=== PATIENT | female | born 1990 | race Caucasian/White ===

== ENCOUNTER 2017-08-21 06:26 | Outpatient (RCR) | payer MEDICAID | END 2017-08-26 | disposition home or self-care (01) | LOC: CARD 06:26 | PROVIDERS: ATTEND Nurse Practitioner Family | DX: R53.83 Other fatigue (principal); R00.2 Palpitations | CPT/HCPCS: 93270 ==

== ENCOUNTER 2017-08-29 13:14 | Outpatient (RCR) | payer MEDICAID | END 2017-11-27 | disposition home or self-care (01) | LOC: CARD 13:14 | PROVIDERS: ATTEND Nurse Practitioner Family | DX: R53.83 Other fatigue (principal); R00.2 Palpitations ==

== ENCOUNTER 2018-10-12 15:50 | Emergency (ER) | payer MEDICAID ==
[~2018-10-12] VITALS: Ht 170.2 cm; Wt 68.0 kg
--- OUTSIDE RECORDS SUMMARY | 2018-10-12 15:54 | XMS REPORT ---
Author Author DARYL ALONZO [facility] Address [address] [place] [address] Care Team Providers Care Ict Programmer Name Role Phone DARYL ALONZO Unavailable PROBLEMS Type Condition ICD9-CM Code QYZ38-TV Code Onset Dates Condition Status SNOMED Code Problem Slurred speech R47.81 Active 143302786 Problem Heart palpitations R00.2 Active 87294024 Problem Hypersomnia G47.10 Active 44301466 Problem Fatigue, unspecified type R53.83 Active 26169989 Problem ADD (attention deficit disorder) F98.8 Active 160838325 ALLERGIES No Information ENCOUNTERS Encounter Location Date Diagnosis [address] [id number] March, [address] [id number] March, Acute otitis externa of right ear, unspecified type H60.[address] [id number] Dec, Influenza J11.[address] [id number] Sep, [address] [id number] May, [address] [id number] Apr, Fatigue, unspecified type R53.83 ; Heart palpitations R00.2 and Slurred speech R47.[address] [id number] Jan, [address] [id number] Oct, Acute non-recurrent maxillary sinusitis J01.00 and Sore throat J02.[address] [id number] [address] Oct, Dental examination Z01.20 [facility] [address]00565[address] [address] Sep, Dental examination Z01.20 [facility] [address] [facility] [id number][place] [address] Sep, [facility] [place] [address] [id number] [address] Sep, [facility] [address] [id number], [place] [id number] Sep, ADD (attention deficit disorder) F98.8 [facility] [place] [address] [id number][place] [address] Sep, ADD (attention deficit disorder) F98.[address] [facility] [place] [address] [place] [address] AVE [id number], [place] 837557732 Aug, Fatigue, unspecified type R53.83 ; Family history of systemic lupus erythematosus Z82.69 ; Hypersomnia G47.10 ; Screening cholesterol level Z13.220 and Thyroid disorder screen Z13.[address] [facility] [place] [id number] [place] [address] [id number] Feb, [facility] [place] [id number], [place] [id number] Jan, [facility] [place] [address] [id number], [place] [phone] Aug, [facility] [place] [address] [id number], [place] [phone] Jun, Sore throat 462 [facility] [place] [id number] [place] [address] [id number] March, [facility] [place] [address] [id number] [place] [address] [id number] March, [facility] [place] [address] [id number][place] [id number] March, [facility] [place] [address] [id number], [place] [phone] March, [facility] [place] [address] [id number], [place] [id number] March, Vaginal discharge 623.5 and Dysuria 788.1 [facility] [place] [id number], [place] [phone] March, [facility] [place] [id number] [place] [address] [id number] March, [facility] [place] [id number] [place] [address] [id number] Feb, [facility] [place] [id number] [place] [address] [id number] Feb, [facility] [place] [id number] [place] [address] [id number] Feb, High risk medication use V58.69 and Attention deficit disorder (ADD) 314.00 [facility] [place] [id number] [place] [address] [id number] Feb, [facility] [id number] [place] [address]- [address] Feb, [facility] [id number] [place] [address]- 2546 Feb, [facility] [place] [id number] [place] [address] [id number] Oct, [facility] [id number] [place] [address]- 2546 Oct, [facility] [place] [id number], [place] [phone] Aug, [facility] [place] [facility] [id number] [place] [address]- 2546 Aug, [facility] [place] [facility] [id number] [place] [address] 24[address]- 2546 Nov, [facility] [place] [facility] [id number] [place] [address]- 2546 Nov, [facility] [place] [id number] [place] [address] [id number] Nov, [facility] [place] [facility] [address] [id number] [place] [address] Nov, [facility] [place] [facility] [address] [id number] [address] Oct, [facility] [place] [facility] [address] [facility] [id number] [place] [address] Oct, [facility] [place] [facility] [address] [id number][place] [address] Aug, [facility] [address] [id number], [place] [phone] Aug, [facility] [place] [facility] [address] [id number][place] [address] Aug, [facility] [address] [id number], [place] [phone] Jul, [facility] [id number] [place] [address] [id number] Jul, [facility] [address] [id number][place] [address] 24 Jul, 2013 [facility] [place] [facility] [address] [id number][place] [address] 18 Jul, 2013 [facility] [address] [facility] [id number], [place] [phone] 16 Jul, 2013 [facility] [place] [facility] [address] [facility] [id number][place] [address] 12 Jul, 2013 [facility] [address] [facility] [id number], [place] [id number] 09 Jul, 2013 [facility] [place] [facility] [address] [id number] [address] 07 Jul, 2013 [facility] [place] [facility] [address] [facility] [id number][place] [address]- 6[address] 06 Jul, 2013 [facility] [place] [facility] [address] [facility] [id number][place] [address] 06 Jul, 2012 [facility] [address] [id number] [place] [phone] Jul, [facility] [address] [id number] [place] [phone] Jun, [facility] [address] [facility] [id number][place] [address] Jun, [facility] [address] [facility] [id number][place] [address] Apr, [facility] [address] [id number] [place] [phone] March, [facility] [address] [id number] [place] [phone] Jan, [facility] [address] [id number] [place] [phone] Jan, [facility] [address] [id number] [place] [phone] Jan, [facility] [address] [id number] [place] [id number] Jan, [facility] [address] [id number] [place] [phone] Dec, [facility] [address] [id number] [place] [phone] Nov, [facility] [address]00565100[place], [place] [address] Nov, [facility] [address] [id number] [place] [id number] Nov, [facility] [address] [id number] [place] [phone] Nov, [facility] [address] [id number] [place] 146843464 Aug, [facility] [address] [id number] [place] [id number] Jul, [facility] [address] [id number] [place] [id number] March, [facility] [address] [facility] [id number][place] [address] Feb, [facility] [address] [facility] [id number] [place] [address] Jan, [facility] 120 [facility] [id number] [place] [phone] Nov, [facility] [address] [facility] [id number] [place] [address] Aug, [facility] [address] [facility] [id number][place] [address]- [address] Aug, IMMUNIZATIONS No Known Immunizations SOCIAL HISTORY Never Assessed REASON FOR VISIT Requests return call PLAN OF CARE VITAL SIGNS MEDICATIONS Unknown Medications RESULTS No Results PROCEDURES No Known procedures INSTRUCTIONS MEDICATIONS ADMINISTERED No Known Medications MEDICAL (GENERAL) HISTORY Type Description Date Medical History attention deficit disorder Surgical History wisdom teeth extraction Surgical History dilatation and curettage 10/2013 Surgical History tubal ligation 07/2014
--- OUTSIDE RECORDS SUMMARY | 2018-10-12 15:54 | XMS REPORT ---
Author Author DARYL ALONZO [facility] [address] Address [address] [place] [address]31 Care Team Providers Care Horizontal Drill Operator Name Role Phone DARYL ALONZO Unavailable PROBLEMS Type Condition ICD9-CM Code XXU88-IQ Code Onset Dates Condition Status SNOMED Code Problem Slurred speech R47.81 Active 664518598 Problem Heart palpitations R00.2 Active 64646189 Problem Hypersomnia G47.10 Active 82451117 Problem Fatigue, unspecified type R53.83 Active 32298255 Problem ADD (attention deficit disorder) F98.8 Active 788315742 ALLERGIES No Known Allergies ENCOUNTERS Encounter Location Date Diagnosis [address] [id number] March, [address] [id number] March, Acute otitis externa of right ear, unspecified type H60.[address] [id number] Dec, Influenza J11.[address] [id number] Sep, [address] [id number] May, [address] [id number] Apr, Fatigue, unspecified type R53.83 ; Heart palpitations R00.2 and Slurred speech R47.[address] [id number] Jan, [address] [id number] Oct, Acute non-recurrent maxillary sinusitis J01.00 and Sore throat J02.9 [facility] [address] [facility] [id number][place] [address] Oct, Dental examination Z01.20 [facility] [address]00565100[place] [address] Sep, Dental examination Z01.20 [facility] [address] [facility] [id number][place] [address]- 3[address] Sep, [facility] [place] [address] [id number], [place] [id number] Sep, [facility] [place] [address] [id number], [place] 12787[address] Sep, ADD (attention deficit disorder) F98.8 [facility] [place] [address] [facility] [address] [id number], [place] [phone] Sep, ADD (attention deficit disorder) F98.8 [facility] [address] [id number], [place] [address] Aug, Fatigue, unspecified type R53.83 ; Family history of systemic lupus erythematosus Z82.69 ; Hypersomnia G47.10 ; Screening cholesterol level Z13.220 and Thyroid disorder screen Z13.29 [facility] [id number] [place] [address] Feb, [facility] [id number] [place] 614[address] Jan, [facility] [place] [address] [id number], [place] [phone] Aug, [facility] [address] [id number] [place] [phone] Jun, Sore throat 462 [facility] [address] [id number] [place] [phone] March, [facility] [address] [id number] [place] 566241097 March, [facility] [address] [id number] [place] 8055167[address] March, [facility] [id number] [place] 8883093[address] March, [facility] [address] [id number] [place] [address] March, Vaginal discharge 623.5 and Dysuria 788.1 [facility] [id number] [place] [id number] March, [facility] [address] [id number] [place] [id number] March, [facility] [id number] [place] [address] [id number] Feb, [facility] [id number] [place] [address] [id number] Feb, [facility] [id number] [place] [address] [id number] Feb, High risk medication use V58.69 and Attention deficit disorder (ADD) 314.00 [facility] [id number] [place] [address] [id number] Feb, [facility] [id number] [place] [address] 627[address]- 2546 Feb, [facility] [id number] [place] [address] 90586 2546 Feb, [facility] [id number] [place] [id number] Oct, [facility] [address] [place] [address] 56772- 2546 Oct, [facility] [id number] [place] [phone] Aug, [facility] [id number] [place] [address] 16761- 2546 Aug, [facility] [id number] [place] [address] 97616- 2546 Nov, [facility] [place] [facility] [id number] [place] [address] 39215- 2546 Nov, [facility] [id number] [place] [address] [id number] Nov, [facility] [place] [facility] [address] [id number] [place] [address]- 9464 Nov, [facility] [place] [facility] [address] [facility] [id number], [place] [address]- 3136 Oct, [facility] [place] [facility] [address] [facility] [id number] [place] [address]- 5985 Oct, [facility] [place] [facility] [address] [facility] [id number] [address]- 1137 Aug, [facility] [address] [facility] [id number] [place] [id number] Aug, [facility] [place] [facility] [address] [id number] [address]- 2723 Aug, [facility] [address] [id number] [place] [id number] Jul, [facility] [id number] [place] [address] [id number] Jul, [facility] [place] [facility] [address] [facility] [id number] [address]- 4489 24 Jul, 2013 [facility] [place] [facility] [address] [facility] [id number], [place] [address]- 3871 18 Jul, 2013 [facility] [address] [facility] [id number] [place] [id number] 16 Jul, 2013 [facility] [place] [facility] [address] [facility] [id number], [place] [address]- 7503 12 Jul, 2013 [facility] [address] [facility] [id number] [place] [id number] 09 Jul, 2013 [facility] [place] [facility] [address] [facility] [id number][place] [address]- 6603 07 Jul, 2013 [facility] [place] [facility] [address] [facility] [id number][place] [address]- 7389 06 Jul, 2013 [facility] [place] [facility] [address] [facility] [id number][place] [address]- 3368 06 Jul, 2012 [facility] [address] [id number] [place] [id number] Jul, [facility] [address] [id number] [place] [id number] Jun, [facility] [place] [address] [facility] [id number][place] [address]- 5147 Jun, [facility] [place] [address] [facility] [id number], [place] [address]- 8467 Apr, [facility] [address] [id number] [place] [id number] March, [facility] [address] [id number] [place] [id number] Jan, [facility] [address] [id number] [place] [id number] Jan, [facility] [address] [id number] [place] [id number] Jan, [facility] [address] [id number] [place] [id number] Jan, [facility] [address] [id number] [place] [id number] Dec, [facility] [address] [id number] [place] [id number] Nov, [facility] [place] [address]00565100[place], [place] [address]- 7[address] Nov, [facility] [address] [id number] [place] [id number] Nov, [facility] [address] [id number] [place] [id number] Nov, [facility] [address] [id number] [place] [id number] Aug, [facility] [address] [id number] [place] [id number] Jul, [facility] [address] [id number] [place] [id number] March, [facility] [address]00565100[place], [place] [address]32- [address]3 Feb, [facility] [address] [facility] [id number] [place] [id number] Jan, [facility] [address] [facility] [id number] [place] [id number] Nov, [facility] [address] [facility] [id number] [place] [address]- 2546 Aug, [facility] [address] [facility] [id number] [place] [address]- 2546 Aug, IMMUNIZATIONS No Known Immunizations SOCIAL HISTORY Never Assessed REASON FOR VISIT ear infection right ear Mely RN PLAN OF CARE Activity Details Follow Up prn Reason: VITAL SIGNS Height 66 in 2018-04-12 Weight 157.0 lbs 2018-04-12 Temperature 97.7 degrees Fahrenheit 2018-04-12 Heart Rate 82 bpm 2018-04-12 Respiratory Rate 18 2018-04-12 BMI 25.34 kg/m2 2018-04-12 Blood pressure systolic 110 mmHg 2018-04-12 Blood pressure diastolic 68 mmHg 2018-04-12 MEDICATIONS Medication Instructions Dosage Frequency Start Date End Date Duration Status Nortriptyline HCl 25 MG Orally Once a day 1 capsule 24h Active Cortisporin 3.5-86034-0 Otic 4 times a day 4 drops into affected ear 6h March, 07 days Active RESULTS No Results PROCEDURES No Known procedures INSTRUCTIONS MEDICATIONS ADMINISTERED No Known Medications MEDICAL (GENERAL) HISTORY Type Description Date Medical History attention deficit disorder Surgical History wisdom teeth extraction Surgical History dilatation and curettage 10/2013 Surgical History tubal ligation 07/2014
--- OUTSIDE RECORDS SUMMARY | 2018-10-12 15:55 | XMS REPORT ---
Author Author MALCOLM DAVENPORT [facility] eClinical[employer] Address Unknown Phone Unavailable Care Team Providers Care Planer Setup Operator Name Role Phone MALCOLM DAVENPORT CP Unavailable Allergies No Known Allergies Problems Problem Type Condition Code Onset Dates Condition Status Problem General counseling for initiation of other contraceptive measures V25.02 Active Problem Screening for malignant neoplasm of the cervix V76.2 Active Problem Leukorrhea, not specified as infective 623.5 Active Problem Allergy, unspecified not elsewhere classified 995.3 Active Problem Vaginal discharge 623.5 Active Problem Unspecified symptom associated with female genital organs 625.9 Active Problem Sore throat 462 Active Problem Headache 784.0 Active Problem Lump or mass in breast 611.72 Active Problem Inflammatory disease of breast 611.0 Active Problem Viral warts, unspecified 078.10 Active Medications No Known Medications Results No Known Results Summary Purpose eClinicalWorks Submission
--- OUTSIDE RECORDS SUMMARY | 2018-10-12 15:55 | XMS REPORT ---
Author AMY Razo [employer] Address Unknown Phone Unavailable Care Team Providers Care Maintenance Planning Clerk Name Role Phone AMY KNAPP CP Unavailable Allergies, Adverse Reactions, Alerts Substance Reaction Event Type N.K.D.A. Info Not Available Non Drug Allergy Problems Problem Type Condition Code Onset Dates Condition Status Problem Hypersomnia G47.10 Active Assessment ADD (attention deficit disorder) F98.8 Active Problem ADD (attention deficit disorder) F98.8 Active Medications Medication Code System Code Instructions Start Date End Date Status Dosage Vyvanse [facility] [address]-01 20 mg Orally Once a day Oct 14, 2016 1 capsule in the morning Multiple Vitamin [facility] [address]-96 - Orally Once a day 1 tablet Procedures Procedure Coding System Code Date Office Visit, Est Pt., Level 3 CPT-4 21609 Oct 14, 2016 DRUG SCREEN NON TLC DEVICES CPT-4 75427 Oct 14, 2016 Vital Signs Date/Time: Oct 14, 2016 Cardiac Monitoring Heart Rate 104 bpm Weight 163.4 lbs Height 66 in BMI 26.37 Index Blood Pressure Diastolic 62 mmHg Blood Pressure Systolic 120 mmHg Results Name Result Date Reference Range Unit Abnormality Flag URINE DRUG SCREEN (IN HOUSE) ----BUP neg 20161014 ----TCA neg 20161014 ----MDMA neg 20161014 ----BENZO neg [id number] ----OPIATE neg 20161014 ----THC neg 20161014 ----MTD neg 20161014 ----AMPH neg 20161014 ----BAR neg 20161014 ----PCP neg 20161014 ----MAMP neg 20161014 ----OXY neg 20161014 ----Lot # [id number] ----Exp date [id number] ----Control + [id number] ----COCAINE neg [id number] Summary Purpose eClinicalWorks Submission
--- OUTSIDE RECORDS SUMMARY | 2018-10-12 15:55 | XMS REPORT ---
Author Author EDGAR NDIAYE [facility] Address Unknown Phone Unavailable Care Team Providers Care Dental Technologist Name Role Phone EDGAR NDIAYE Unavailable Unavailable PROBLEMS Type Condition ICD9-CM Code KWP25-NH Code Onset Dates Condition Status SNOMED Code Problem Fatigue, unspecified type R53.83 Active 10529933 Problem Heart palpitations R00.2 Active 80506122 Problem Hypersomnia G47.10 Active 71416579 Problem Slurred speech R47.81 Active 070061752 Problem ADD (attention deficit disorder) F98.8 Active 950930166 ALLERGIES Unknown Allergies SOCIAL HISTORY No smoking Hx information available PLAN OF CARE Activity Details Follow Up next available. Reason: VITAL SIGNS MEDICATIONS Unknown Medications RESULTS No Results PROCEDURES Procedure Date Ordered Related Diagnosis Body Site Psychotherapy, patient &/family, 30 minutes, established patient Oct 10, 2016 IMMUNIZATIONS No Known Immunizations
--- OUTSIDE RECORDS SUMMARY | 2018-10-12 15:55 | XMS REPORT ---
Author Author DARYL ALONZO [facility] Address [address] [place] [address] Care Team Providers Care Anesthesiologist And Critical Care Name Role Phone DARYL ALONZO Unavailable PROBLEMS Type Condition ICD9-CM Code [id number] Code Onset Dates Condition Status SNOMED Code Problem Slurred speech R47.81 Active 936393196 Problem Heart palpitations R00.2 Active 29100733 Problem Hypersomnia G47.10 Active 76097304 Problem Fatigue, unspecified type R53.83 Active 05094448 Problem ADD (attention deficit disorder) F98.8 Active 791217181 ALLERGIES No Known Allergies ENCOUNTERS Encounter Location Date Diagnosis [address] [id number] March, [address] [id number] March, Acute otitis externa of right ear, unspecified type H60.[address] [id number] Dec, Influenza J11.[address] [id number] Sep, [address] [id number] May, [address] [id number] Apr, Fatigue, unspecified type R53.83 ; Heart palpitations R00.2 and Slurred speech R47.[address] [id number] Jan, [address] [id number] Oct, Acute non-recurrent maxillary sinusitis J01.00 and Sore throat J02.9 [facility] [address] [facility] [id number] [address] Oct, Dental examination Z01.[address] [facility] [address]00565100[place], [place] [address] Sep, Dental examination Z01.20 [facility] [address] [facility] [id number] [address] Sep, [facility] [address] [id number] [place] [address] Sep, [facility] [address] [id number] [place] [address] Sep, ADD (attention deficit disorder) F98.[address] [facility] [place] [address] [facility] [address] [id number] [place] [id number] Sep, ADD (attention deficit disorder) F98.[address] [facility] [address] [id number] [place] [address] Aug, Fatigue, unspecified type R53.83 ; Family history of systemic lupus erythematosus Z82.69 ; Hypersomnia G47.10 ; Screening cholesterol level Z13.220 and Thyroid disorder screen Z13.29 [facility] [id number], [place] [address] Feb, [facility] [place] [id number], [place] [id number] Jan, [facility] [address] [id number] [place] [id number] Aug, [facility] [place] [address] [id number], [place] 139055481 Jun, Sore throat 462 [facility] [place] [address] [id number], [place] [address] March, [facility] [place] [address] [id number], [place] [id number] March, [facility] [place] [address] [id number], [place] [address] March, [facility] [place] [id number], [place] [address] March, [facility] [place] [address] [id number], [place] [address] March, Vaginal discharge 623.5 and Dysuria 788.1 [facility] [place] [id number], [place] [address] March, [facility] [place] [id number], [place] [address] March, [facility] [place] [id number] [place] [address] [id number] Feb, [facility] [place] [id number] [place] [address] [id number] Feb, High risk medication use V58.69 and Attention deficit disorder (ADD) 314.00 [facility] [place] [id number] [place] [address] [id number] Feb, [facility] [place] [id number] [place] [address] [id number] Feb, [facility] [id number] [place] [address]- [address] Feb, [facility] [id number] [place] [address] 2546 Feb, [facility] [place] [id number], [place] 280[address] Oct, [facility] [id number] [place] [address]- 2546 Oct, [facility] [place] [id number], [place] [id number] Aug, [facility] [place] [facility] [id number] [place] [address] 16783- 2546 Aug, [facility] [place] [facility] [id number] [place] [address]- 2546 Nov, [facility] [place] [facility] [id number] [place] [address]- 2546 Nov, [facility] [place] [id number] [place] [address] [id number] Nov, [facility] [place] [facility] [address] [id number] [place] [address] Nov, [facility] [place] [facility] [address] [facility] [id number] [address] Oct, [facility] [place] [facility] [address] [facility] [id number] [place] [address]- 6[address] Oct, [facility] [place] [facility] [address] [facility] [id number] [address]- [address] Aug, [facility] [address] [facility] [id number] [place] [id number] Aug, [facility] [place] [facility] [address] [id number] [address] Aug, [facility] [address] [id number], [place] 006[address]3364 Jul, [facility] [address] [id number] [place] [address] [id number] Jul, [facility] [place] [facility] [address] [facility] [id number] [address]- [address] 24 Jul, 2013 [facility] [place] [facility] [address] [facility] [id number] [address] 18 Jul, 2013 [facility] [address] [facility] [id number], [place] [id number] 16 Jul, 2013 [facility] [place] [facility] [address] [facility] [id number], [place] [address] 12 Jul, 2013 [facility] [address] [facility] [id number], [place] [id number] 09 Jul, 2013 [facility] [place] [facility] [address] [facility] [id number] [address]- 69[address] 07 Jul, 2013 [facility] [place] [facility] [address] [facility] [id number] [address]- [address] 06 Jul, 2013 [facility] [place] [facility] [address] [facility] [id number] [address]- [address] 06 Jul, 2012 [facility] [address] [id number] [place] [id number] Jul, [facility] [address] [id number] [place] [id number] Jun, [facility] [address] [facility] [id number] [address] Jun, [facility] [address] [facility] [id number] [address]- 4[address] Apr, [facility] [address] [id number] [place] [id number] March, [facility] [address] [id number] [place] [id number] Jan, [facility] [address] [id number] [place] [id number] Jan, [facility] [address] [id number] [place] [id number] Jan, [facility] [address] [id number] [place] [id number] Jan, [facility] [address] [id number] [place] [id number] Dec, [facility] [address] [id number] [place] [id number] Nov, [facility] [address]00565100[place] [address] Nov, [facility] [address] [id number] [place] [id number] Nov, [facility] [address] [id number] [place] [id number] Nov, [facility] [address] [id number] [place] [id number] Aug, [facility] [address] [id number] [place] 7114724[address] Jul, [facility] [address] [id number] [place] [id number] March, [facility] [address]00565100[place], [place] 423[place] Feb, [facility] [address] [facility] [id number] [place] [address] Jan, [facility] [address] [facility] [id number] [place] [phone] Nov, [facility] [address] [facility] [id number] [place] [address]- [address] Aug, [facility] [address] [facility] [id number] [place] [address]- [address] Aug, IMMUNIZATIONS No Known Immunizations SOCIAL HISTORY Never Assessed REASON FOR VISIT poss flu Mely RN PLAN OF CARE Activity Details Follow Up prn Reason: VITAL SIGNS Height 66 in 2018-01-17 Weight 167.2 lbs 2018-01-17 Temperature 99.0 degrees Fahrenheit 2018-01-17 Heart Rate 98 bpm 2018-01-17 Respiratory Rate 16 2018-01-17 BMI 26.98 kg/m2 2018-01-17 Blood pressure systolic 120 mmHg 2018-01-17 Blood pressure diastolic 82 mmHg 2018-01-17 MEDICATIONS Medication Instructions Dosage Frequency Start Date End Date Duration Status Tamiflu 75 MG Orally Twice a day 1 capsule 12h Dec, 5 day(s) Active RESULTS Name Result Date Reference Range INFLUENZA A & B (IN HOUSE) 2018-01-17 INFLUENZA A Positive INFLUENZA B Negative Control + Lot # [id number] Exp date 06/15/2020 PROCEDURES Procedure Date Ordered Result Body Site INFLUENZA ASSAY W/OPTIC Jan 17, 2018 INSTRUCTIONS MEDICATIONS ADMINISTERED No Known Medications MEDICAL (GENERAL) HISTORY Type Description Date Medical History attention deficit disorder Surgical History wisdom teeth extraction Surgical History dilatation and curettage 10/2013 Surgical History tubal ligation 07/2014
--- OUTSIDE RECORDS SUMMARY | 2018-10-12 15:55 | XMS REPORT ---
Author AMY Razo [facility] eClinicalWorks Address Unknown Phone Unavailable Care Team Providers Care Client Service Supervisor Name Role Phone AMY KNAPP CP Unavailable Allergies No Known Allergies Problems Problem Type Condition Code Onset Dates Condition Status Problem Hypersomnia G47.10 Active Problem ADD (attention deficit disorder) F98.8 Active Medications No Known Medications Results No Known Results Summary Purpose eClinicalWorks Submission
--- OUTSIDE RECORDS SUMMARY | 2018-10-12 15:55 | XMS REPORT ---
Author Author YANE MCCLELLAN Organization [facility] Address [address] [place] [address] Care Team Providers Care Telephone Engineer Name Role Phone YANE MCCLELLAN Unavailable PROBLEMS Type Condition ICD9-CM Code BJR06-WN Code Onset Dates Condition Status SNOMED Code Problem ADD (attention deficit disorder) F98.8 Active 730751686 Problem Hypersomnia G47.10 Active 59541325 Assessment Dental examination Z01.20 Sep, Active 402335553 ALLERGIES Substance Reaction Event Type Date Status N.K.D.A. Unknown Non Drug Allergy Sep, Unknown SOCIAL HISTORY No smoking Hx information available PLAN OF CARE VITAL SIGNS Height 66 in 2016-10-17 Heart Rate 71 bpm 2016-10-17 Blood pressure systolic 121 mmHg 2016-10-17 Blood pressure diastolic 84 mmHg 2016-10-17 MEDICATIONS Medication Instructions Dosage Frequency Start Date End Date Duration Status Multiple Vitamin - Orally Once a day 1 tablet 24h Active Vyvanse 20 mg Orally Once a day 1 capsule in the morning 24h Sep, Active RESULTS No Results PROCEDURES Procedure Date Ordered Related Diagnosis Body Site COMP ORAL EVALUATION - NEW/EST PT Oct 17, 2016 BITEWINGS - FOUR FILMS Oct 17, 2016 PROPHYLAXIS - ADULT Oct 17, 2016 PANORAMIC FILM SEE ALSO CODE 27703 Oct 17, 2016 TOPICAL FLUORIDE VARNISH Oct 17, 2016 ORAL HYGIENE INSTRUCTIONS Oct 17, 2016 IMMUNIZATIONS No Known Immunizations
--- OUTSIDE RECORDS SUMMARY | 2018-10-12 15:55 | XMS REPORT ---
Author Author DARYL ALONZO [facility] Address [address] [place] [address] Care Team Providers Care Chemical Process Operator Name Role Phone DARYL ALONZO Unavailable PROBLEMS Type Condition ICD9-CM Code HKO66-ZM Code Onset Dates Condition Status SNOMED Code Problem Slurred speech R47.81 Active 417788948 Problem Heart palpitations R00.2 Active 16223123 Problem Hypersomnia G47.10 Active 76277175 Problem Fatigue, unspecified type R53.83 Active 22645485 Problem ADD (attention deficit disorder) F98.8 Active 806725847 ALLERGIES No Information ENCOUNTERS Encounter Location Date Diagnosis [address] [id number] Dec, Influenza J11.[address] [id number] Sep, [address] [id number] May, [address] [id number] Apr, Fatigue, unspecified type R53.83 ; Heart palpitations R00.2 and Slurred speech R47.[address] [id number] Jan, [address] [id number] Oct, Acute non-recurrent maxillary sinusitis J01.00 and Sore throat J02.9 [place] [address] [address] Oct, Dental examination Z01.20 [place] [address] [address] Sep, Dental examination Z01.20 [facility] [address] [facility] [id number][place] [address]76[address] Sep, [facility] [address] [id number][place] [id number] Sep, [facility] [address] [id number], [place] [id number] Sep, ADD (attention deficit disorder) F98.8 [facility] [address] [id number], [place] [address] Sep, ADD (attention deficit disorder) F98.8 [facility] [address] [id number][place] [id number] Aug, Fatigue, unspecified type R53.83 ; Family history of systemic lupus erythematosus Z82.69 ; Hypersomnia G47.10 ; Screening cholesterol level Z13.220 and Thyroid disorder screen Z13.29 [facility] [id number] [place] [address] [id number] Feb, [facility] [place] [id number] [place] [address] [id number] Jan, [facility] [address] [facility] [address] [id number], [place] [id number] Aug, [facility] [id number] [place] [address] [id number] Jun, Sore throat 462 [facility] [id number] [place] [address] [id number] March, [facility] [place] [id number] [place] [address] [id number] March, [facility] [place] [id number] [place] [address] [id number] March, [facility] [place] [id number] [place] [address] [id number] March, [facility] [place] [id number] [place] [address] [id number] March, Vaginal discharge 623.5 and Dysuria 788.1 [facility] [place] [id number] [place] [address] [id number] March, [facility] [place] [address] [id number], [place] [id number] March, [facility] [id number], [place] [address]69[address] Feb, [facility] [place] [address] [id number], [place] [id number] Feb, [facility] [place] [id number], [place] [address] Feb, High risk medication use V58.69 and Attention deficit disorder (ADD) 314.00 [facility] [place] [address] [id number], [place] [id number] Feb, [facility] [id number] [place] [address]- 2546 Feb, [facility] [id number] [place] [address]74- 2546 Feb, [facility] [place] [id number], [place] [id number] Oct, [facility] [address]00565100[place], [place] [address]- 5[address] Oct, [facility] [place] [id number], [place] 6[address]45 Aug, [facility] [place] [facility] [address]00565100[place], [place] [address]- 7[address] Aug, [facility] [place] [facility] [address] [id number], [place] [address]- 2546 Nov, [facility] [place] [facility] [address]00565100[place], [place] [address]- 6706 Nov, [facility] [address] [id number], [place] [id number] Nov, [facility] [place] [facility] [address] [id number], [place] [address]- 2546 Nov, [facility] [place] [facility] [address] [id number], [place] [address]- 9966 Oct, [facility] [address] [facility] [id number][place] [address]- 1646 Oct, [facility] [address] [facility] [id number][place] [address]- 0446 Aug, [facility] [place] [address] [id number], [place] [address]25[address]20 Aug, [facility] [address] [facility] [id number][place] [address]- 7056 Aug, [facility] [address] [id number], [place] [id number] Jul, [facility] [address] [id number] [place] [id number] Jul, [facility] [place] [facility] [address] [facility] [id number], [place] [address]- 8566 24 Jul, 2013 [facility] [address]00565100[place], [place] [address]- 9966 18 Jul, 2013 [facility] [address] [facility] [id number], [place] 157638523 16 Jul, 2013 [facility] [place] [facility] [address]00565100[place], [place] [address]- 83[address] 12 Jul, 2013 [facility] [address] [facility] [id number], [place] [id number] 09 Jul, 2013 [facility] [place] [facility] [address]00565100[place], [place] [address]- 65[address] 07 Jul, 2013 [facility] [place] [facility] [address] [facility] [id number][place] [address]- 5[address] 06 Jul, 2013 [facility] [place] [facility] [address] [facility] [id number][place] [address]- 3[address] Jul, [facility] [address] [facility] [id number], [place] [id number] Jul, [facility] [address] [facility] [id number], [place] [id number] Jun, [facility] [place] [facility] [address] [facility] [id number] [place] [address]- 2546 Jun, [facility] [address] [facility] [id number][place] [address]- 2546 Apr, [facility] [address] [id number] [place] [id number] March, [facility] [address] [id number] [place] [id number] Jan, [facility] [address] [id number] [place] [phone] Jan, [facility] [address] [id number] [place] [id number] Jan, [facility] [address] [id number] [place] [id number] Jan, [facility] [address] [id number] [place] 194464229 Dec, [facility] [address] [id number] [place] [id number] Nov, [facility] [address] [facility] [id number][place] [address]- 2546 Nov, [facility] [address] [id number] [place] [id number] Nov, [facility] [address] [id number] [place] [id number] Nov, [facility] [address] [id number] [place] [id number] Aug, [facility] [address] [id number] [place] [id number] Jul, [facility] [address] [id number] [place] [id number] March, [facility] [address] [facility] [id number], [place] [address]- [address] Feb, [facility] [address] [id number] [place] [id number] Jan, [facility] [address] [id number] [place] [id number] Nov, [facility] [address] [facility] [id number] [place] [address]- [address] Aug, [facility] [address] [facility] [id number] [place] [address] Aug, IMMUNIZATIONS No Known Immunizations SOCIAL HISTORY Never Assessed REASON FOR VISIT Waiting for call back PLAN OF CARE VITAL SIGNS MEDICATIONS No Known Medications RESULTS No Results PROCEDURES No Known procedures INSTRUCTIONS MEDICATIONS ADMINISTERED No Known Medications MEDICAL (GENERAL) HISTORY Type Description Date Medical History attention deficit disorder Surgical History wisdom teeth extraction Surgical History dilatation and curettage 10/2013 Surgical History tubal ligation 07/2014
--- OUTSIDE RECORDS SUMMARY | 2018-10-12 15:55 | XMS REPORT ---
Author AMY Razo [facility] eClinicalWorks Address Unknown Phone Unavailable Care Team Providers Care Client Resource Specialist Name Role Phone AMY KNAPP CP Unavailable Allergies No Known Allergies Problems Problem Type Condition Code Onset Dates Condition Status Problem Hypersomnia G47.10 Active Problem ADD (attention deficit disorder) F98.8 Active Medications No Known Medications Results No Known Results Summary Purpose eClinicalWorks Submission
--- OUTSIDE RECORDS SUMMARY | 2018-10-12 15:55 | XMS REPORT ---
Author AMY Razo Organization eClinicalWorks Address Unknown Phone Unavailable Care Team Providers Care Carpenter Apprentice Name Role Phone AMY KNAPP CP Unavailable Allergies, Adverse Reactions, Alerts Substance Reaction Event Type N.K.D.A. Info Not Available Non Drug Allergy Problems Problem Type Condition Code Onset Dates Condition Status Assessment Fatigue, unspecified type R53.83 Active Assessment Family history of systemic lupus erythematosus Z82.69 Active Problem Hypersomnia G47.10 Active Assessment Thyroid disorder screen Z13.29 Active Assessment Hypersomnia G47.10 Active Assessment Screening cholesterol level Z13.220 Active Medications Medication Code System Code Instructions Start Date End Date Status Dosage Multiple Vitamin [facility] [address]-23 - Orally Once a day 1 tablet Procedures Procedure Coding System Code Date VENIPUNCT, ROUTINE* CPT-4 08265 Sep 13, 2016 Office Visit, Est Pt., Level 3 CPT-4 98725 Sep 13, 2016 LAB NOT BILLED BY [facility] CPT-4 NOBLL Sep 13, 2016 Vital Signs Date/Time: Sep 13, 2016 Cardiac Monitoring Heart Rate 78 bpm Weight 163.8 lbs Height 66 in BMI 26.44 Index Blood Pressure Diastolic 64 mmHg Blood Pressure Systolic 110 mmHg Results Name Result Date Reference Range Unit Abnormality Flag ROUTINE VENIPUNCTURE Summary Purpose eClinicalWorks Submission
--- OUTSIDE RECORDS SUMMARY | 2018-10-12 15:56 | XMS REPORT ---
Author Author MALCOLM DAVENPORT [facility] eClinicalWorks Address Unknown Phone Unavailable Care Team Providers Care Jewelry Making Instructor Name Role Phone MALCOLM DAVENPORT CP Unavailable [...]
--- OUTSIDE RECORDS SUMMARY | 2018-10-12 15:56 | XMS REPORT ---
Author Author DARYL ALONZO Organization eClinicalWorks Address Unknown Phone Unavailable Care Team Providers Care Branch Administrator Name Role Phone DARYL ALONZO CP Unavailable Allergies, Adverse Reactions, Alerts Substance Reaction Event Type N.K.D.A. Info Not Available Non Drug Allergy Problems Problem Type Condition ICD-9 Code Onset Dates Condition Status Problem General counseling for initiation of other contraceptive measures V25.02 Active Problem Screening for malignant neoplasm of the cervix V76.2 Active Problem Leukorrhea, not specified as infective 623.5 Active Assessment Sore throat 462 Active Problem Allergy, unspecified not elsewhere classified 995.3 Active Problem Vaginal discharge 623.5 Active Problem Unspecified symptom associated with female genital organs 625.9 Active Problem Sore throat 462 Active Problem Headache 784.0 Active Problem Lump or mass in breast 611.72 Active Problem Inflammatory disease of breast 611.0 Active Problem Viral warts, unspecified 078.10 Active Medications No Known Medications Procedures Procedure Coding System Code Date STREP A ASSAY W/OPTIC CPT-4 55158 Jul 14, 2015 Office Visit, Est Pt., Level 3 CPT-4 11165 Jul 14, 2015 Vital Signs Date/Time: Jul 14, 2015 Temperature 98.8 F Weight 158 lbs Height 66 in BMI 25.50 Index Blood Pressure Diastolic 76 mmHg Blood Pressure Systolic 110 mmHg Cardiac Monitoring Heart Rate 76 bpm Results Name Result Date Reference Range Unit Abnormality Flag STREP A (IN HOUSE) Summary Purpose eClinicalWorks Submission
--- OUTSIDE RECORDS SUMMARY | 2018-10-12 15:56 | XMS REPORT ---
Author Author JOSE C SHIPLEY Organization [facility] Address [address] [place] [address] Care Team Providers Care Field Supervisor Seed Production Name Role Phone NORMARICHELLE SANTIAGO JOSE C Unavailable PROBLEMS Type Condition ICD9-CM Code [id number] Code Onset Dates Condition Status SNOMED Code Problem Slurred speech R47.81 Active 996332786 Problem Heart palpitations R00.2 Active 04195902 Problem Hypersomnia G47.10 Active 92048827 Problem Fatigue, unspecified type R53.83 Active 34332547 Problem ADD (attention deficit disorder) F98.8 Active 160224974 ALLERGIES Substance Reaction Event Type Date Status N.K.D.A. Unknown Non Drug Allergy Oct, Unknown SOCIAL HISTORY No smoking Hx information available PLAN OF CARE Activity Details Follow Up 1 Week Reason:if not improving VITAL SIGNS Height 66 in 2016-11-08 Weight 168.2 lbs 2016-11-08 Temperature 101.6 degrees Fahrenheit 2016-11-08 Heart Rate 130 bpm 2016-11-08 Respiratory Rate 20 2016-11-08 BMI 27.15 kg/m2 2016-11-08 Blood pressure systolic 110 mmHg 2016-11-08 Blood pressure diastolic 78 mmHg 2016-11-08 MEDICATIONS Medication Instructions Dosage Frequency Start Date End Date Duration Status Sudafed 60 mg Orally every 6 hrs 1 tablet as needed 6h Oct, 10 days Active Augmentin 875-125 MG Orally every 12 hrs 1 tablet 12h Oct,Oct 10 day(s) Active Multiple Vitamin - Orally Once a day 1 tablet 24h Active RESULTS Name Result Date Reference Range STREP A (IN HOUSE) 2016-11-08 STREP A negative Control + Lot # [id number] Exp date 05/11/18 PROCEDURES Procedure Date Ordered Related Diagnosis Body Site Office Visit, Est Pt., Level 3 Nov 08, 2016 STREP A ASSAY W/OPTIC Nov 08, 2016 IMMUNIZATIONS No Known Immunizations
--- OUTSIDE RECORDS SUMMARY | 2018-10-12 15:56 | XMS REPORT ---
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 Role Phone DARYL ALONZO Unavailable PROBLEMS Type Condition ICD9-CM Code LIL97-UW Code Onset Dates Condition Status SNOMED Code Problem Slurred speech R47.81 Active 006789724 Problem Heart palpitations R00.2 Active 19979316 Problem Hypersomnia G47.10 Active 39985435 Problem Fatigue, unspecified type R53.83 Active 08029006 Problem ADD (attention deficit disorder) F98.8 Active 321911001 ALLERGIES No Known Allergies ENCOUNTERS Encounter Location Date Diagnosis [address] [id number] Dec, Influenza J11.[address] [id number] Sep, [address] [id number] May, [address] [id number] Apr, Fatigue, unspecified type R53.83 ; Heart palpitations R00.2 and Slurred speech R47.[address] [id number] Jan, [address] [id number] Oct, Acute non-recurrent maxillary sinusitis J01.00 and Sore throat J02.9 [place] [id number] [place] [address] Oct, Dental examination Z01.20 [place] [id number] [place] [address] Sep, Dental examination Z01.20 [facility] [address] [facility] [id number] [place] [address] Sep, [facility] [address] [id number][place] [id number] Sep, [facility] [address] [id number][place] [id number] Sep, ADD (attention deficit disorder) F98.8 [facility] [address] [id number][place] [id number] Sep, ADD (attention deficit disorder) F98.8 [facility] [address] [id number][place] [id number] Aug, Fatigue, unspecified type R53.83 ; Family history of systemic lupus erythematosus Z82.69 ; Hypersomnia G47.10 ; Screening cholesterol level Z13.220 and Thyroid disorder screen Z13.29 [facility] [id number] [place] [id number] Feb, [facility] [place] [id number] [place] [id number] Jan, [facility] [place] [address] [facility] [address] [id number][place] [id number] Aug, [facility] [id number] [place] [id number] Jun, Sore throat 462 [facility] [place] [id number] [place] [address] [id number] March, [facility] [id number] [place] [address] [id number] March, [facility] [place] [id number] [place] [address] [id number] March, [facility] [id number] [place] [address] [id number] March, [facility] [id number] [place] [address] [id number] March, Vaginal discharge 623.5 and Dysuria 788.1 [facility] [place] [id number] [place] [address] [id number] March, [facility] [address] [id number] [id number] March, [facility] [address] [id number] [id number] Feb, [facility] [address] [id number][place] [id number] Feb, [facility] [id number], [place] [id number] Feb, High risk medication use V58.69 and Attention deficit disorder (ADD) 314.00 [facility] [id number], [place] [id number] Feb, [facility] [id number] [place] [address] Feb, [facility] [address] [id number] [place] [address] Feb, [facility] [id number], [place] [id number] Oct, [facility] [address]00565100[address] [place] [address] Oct, [facility] [id number], [place] [id number] Aug, [facility] [address]65100[place] [place] [address] Aug, [facility] [address] [place] [address] Nov, [facility] [address] [place] [address] Nov, [facility] [address] [id number], [place] [id number] Nov, [facility] [address] [place] [address] Nov, [facility] [address] [id number] [place] [address] Oct, [facility] [address] [id number] [place] [address] Oct, [facility] [address] [facility] [id number] [place] [address] Aug, [facility] [address] [id number] [place] [id number] Aug, [facility] [address] [facility] [id number] [place] [address] Aug, [facility] [address] [id number][place] [id number] Jul, [facility] [address] [id number] [place] [id number] Jul, [facility] [address] [facility] [id number] [place] [address] 24 Jul, 2013 [facility] [address] [place] [address] 18 Jul, 2013 [facility] [address] [facility] [id number], [place] [id number] 16 Jul, 2013 [facility] [address] [facility] [id number] [place] [address] 12 Jul, 2013 [facility] [address] [facility] [id number], [place] [id number] Jul, [facility] [address] [facility] [id number] [place] [address] 07 Jul, 2013 [facility] [address] [facility] [id number] [place] [address] 06 Jul, 2013 [facility] [address] [facility] [id number] [place] [address] Jul, [facility] [address] [facility] [id number], [place] [id number] Jul, [facility] [address] [facility] [id number], [place] [id number] Jun, [facility] [address] [facility] [id number] [place] [address] Jun, [facility] [address] [facility] [id number] [place] [address] Apr, [facility] [address] [id number] [place] [id number] March, [facility] [address] [id number] [place] [phone] Jan, [facility] [address] [id number] [place] [id number] Jan, [facility] [address] [id number] [place] [id number] Jan, [facility] [address] [id number] [place] [id number] Jan, [facility] [address] [id number] [place] [id number] Dec, [facility] [address] [id number] [place] [id number] Nov, [facility] [address] [facility] [id number] [place] [address] Nov, [facility] [address] [id number] [place] [id number] Nov, [facility] [address] [id number] [place] [id number] Nov, [facility] [address] [id number] [place] [id number] Aug, [facility] [address] [id number] [place] [id number] Jul, [facility] [address] [id number] [place] [id number] March, [facility] [address] [facility] [id number] [place] [address] Feb, [facility] [address] [id number] [place] [id number] Jan, [facility] [address] [id number] [place] [id number] Nov, [facility] [address] [facility] [id number] [place] [address] Aug, [facility] [address] [facility] [id number] [place] [address] Aug, IMMUNIZATIONS No Known Immunizations SOCIAL HISTORY Never Assessed REASON FOR VISIT Transition of Care- Has episode of slurred speech and extreme fatigue. Has some palpatations Cristhian MATA PLAN OF CARE Activity Details Follow Up 6 Weeks Reason:fatigue VITAL SIGNS Height 66 in 2017-05-23 Weight 161.0 lbs 2017-05-23 Temperature 98.1 degrees Fahrenheit 2017-05-23 Heart Rate 96 bpm 2017-05-23 Respiratory Rate 20 2017-05-23 BMI 25.98 kg/m2 2017-05-23 Blood pressure systolic 118 mmHg 2017-05-23 Blood pressure diastolic 72 mmHg 2017-05-23 MEDICATIONS No Known Medications RESULTS Name Result Date Reference Range TSH 2017-05-23 TSH 1.440 0.450-4.500 CBC 2017-05-23 WBC 8.1 3.4-10.8 RBC 4.59 3.77-5.28 Hemoglobin 14.3 11.1-15.9 Hematocrit 42.0 34.0-46.6 MCV 92 79-97 MCH 31.2 26.6-33.0 MCHC 34.0 31.5-35.7 RDW 12.5 12.3-15.4 Platelets 242 150-379 Neutrophils 66 Lymphs 26 Monocytes 7 Eos 1 Basos 0 Immature Cells Neutrophils (Absolute) 5.3 1.4-7.0 Lymphs (Absolute) 2.1 0.7-3.1 Monocytes(Absolute) 0.6 0.1-0.9 Eos (Absolute) 0.1 0.0-0.4 Baso (Absolute) 0.0 0.0-0.2 Immature Granulocytes 0 Immature Grans (Abs) 0.0 0.0-0.1 NRBC Hematology Comments: CMP 2017-05-23 Glucose, Serum 93 65-99 BUN 8 6-20 Creatinine, Serum 0.75 0.57-1.00 eGFR If NonAfricn Am 110 >59 eGFR If Africn Am 127 >59 BUN/Creatinine Ratio 11 9-23 Sodium, Serum 142 134-144 Potassium, Serum 3.7 3.5-5.2 Chloride, Serum 99 96-106 Carbon Dioxide, Total 23 18-29 Calcium, Serum 10.1 8.7-10.2 Protein, Total, Serum 7.5 6.0-8.5 Albumin, Serum 5.0 3.5-5.5 Globulin, Total 2.5 1.5-4.5 A/G Ratio 2.0 1.2-2.2 Bilirubin, Total 1.0 0.0-1.2 Alkaline Phosphatase, S 76 39-117 AST (SGOT) 18 0-40 ALT (SGPT) 13 0-32 PROCEDURES Procedure Date Ordered Result Body Site COMPLETE CBC W/AUTO DIFF WBC May 23, 2017 COMPREHEN METABOLIC PANEL May 23, 2017 ASSAY THYROID STIM HORMONE May 23, 2017 VENIPUNCT, ROUTINE* May 23, 2017 INSTRUCTIONS MEDICATIONS ADMINISTERED No Known Medications MEDICAL (GENERAL) HISTORY Type Description Date Medical History attention deficit disorder Surgical History wisdom teeth extraction Surgical History dilatation and curettage 10/2013 Surgical History tubal ligation 07/2014
--- OUTSIDE RECORDS SUMMARY | 2018-10-12 15:56 | XMS REPORT ---
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 Name Role Phone AMY KNAPP Unavailable PROBLEMS Type Condition ICD9-CM Code KQI29-DM Code Onset Dates Condition Status SNOMED Code Problem Slurred speech R47.81 Active 271836770 Problem Heart palpitations R00.2 Active 52288161 Problem Hypersomnia G47.10 Active 19004286 Problem Fatigue, unspecified type R53.83 Active 30185786 Problem ADD (attention deficit disorder) F98.8 Active 290109892 ALLERGIES No Information SOCIAL HISTORY Never Assessed PLAN OF CARE VITAL SIGNS MEDICATIONS Unknown Medications RESULTS No Results PROCEDURES No Known procedures IMMUNIZATIONS No Known Immunizations MEDICAL (GENERAL) HISTORY Type Description Date Medical History attention deficit disorder Surgical History wisdom teeth extraction Surgical History dilatation and curettage 10/2013 Surgical History tubal ligation 07/2014
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
[2018-10-12 16:14] LABS: BASOPHILS # (AUTO) 0.1 10^3/uL (0.0-0.1); BASOPHILS % (AUTO) 1 % (0-10); EOSINOPHILS # (AUTO) 0.1 10^3/uL (0.0-0.3); EOSINOPHILS % (AUTO) 2 % (0-10); HEMATOCRIT 39 % (35-52); LYMPHOCYTES # (AUTO) 2.1 X 10^3 (1.0-4.0); LYMPHOCYTES % (AUTO) 32 % (12-44); MEAN CORPUSCULAR HEMOGLOBIN 32 PG (25-34); MEAN CORPUSCULAR HGB CONC 36 G/DL (32-36); MEAN CORPUSCULAR VOLUME 89 FL (80-99); MEAN PLATELET VOLUME 10.5 FL (7.4-10.4); MONOCYTES # (AUTO) 0.5 X 10^3 (0.0-1.0); MONOCYTES % (AUTO) 8 % (0-12); NEUTROPHILS # (AUTO) 3.8 X 10^3 (1.8-7.8); NEUTROPHILS % (AUTO) 57 % (42-75); PLATELET COUNT 262 10^3/uL (130-400); RED BLOOD COUNT 4.41 10^6/uL (4.35-5.85); RED CELL DISTRIBUTION WIDTH 11.8 % (10.0-14.5); WHITE BLOOD COUNT 6.6 10^3/uL (4.3-11.0)
[2018-10-12 16:32] LABS: ALANINE AMINOTRANSFERASE 20 U/L (0-55); ALBUMIN 4.9 GM/DL (3.2-4.5); ALKALINE PHOSPHATASE 97 U/L (40-136); BILIRUBIN,TOTAL 0.8 MG/DL (0.1-1.0); BUN/CREATININE RATIO 10; CALCIUM 9.8 MG/DL (8.5-10.1); CARBON DIOXIDE 27 MMOL/L (21-32); CHLORIDE 105 MMOL/L (98-107); CREATININE SERUM 0.81 MG/DL (0.60-1.30); GFR ESTIMATED > 60; GLUCOSE 106 MG/DL (70-105); POTASSIUM 3.4 MMOL/L (3.6-5.0); SODIUM 140 MMOL/L (135-145); TOTAL PROTEIN 8.2 GM/DL (6.4-8.2)
[2018-10-12] MEDS ORDERED: KETOROLAC 30 MG/ML VIAL IVP STA (16:46)
[2018-10-12] MEDS ORDERED: NS IV 1000 ML 1,000 ML IV ONE (16:46)
--- NOTE | 2018-10-12 17:03 | ED Neurological Problem ---
General Chief Complaint: Neurological Problems Stated Complaint: SLURRED SPEECH/SHAKING Nursing Triage Note: PT STATES SHE WAS WATCHING TV AND STARTED SHAKING AND HAVING SLURRED SPEECH. THIS IS SOMETHING THAT HAPPENS OFTEN. PHONE CALL PLACED TO HER NEUROLOGIST, TOLD TO COME TO ED FOR EVALUATION. Nursing Sepsis Screen: No Definite Risk Source: patient Exam Limitations: no limitations History of Present Illness Date Seen by Provider: Oct 12, 2018 Time Seen by Provider: 16:37 Initial Comments Here with report of difficulties with speech and shaking. States that she was sitting down watching TV a few hours ago when she noted that her hands were shaking. She called her grandmother and then started having slurred speech. This happens occasionally and has happened multiple times over the last 7 years. She was started on nortriptyline by her neurologist after evaluation for this and that seems to have slowed it down a little bit but she still has episodes and this appears to be the worst one. Doing better now but was having fairly significant difficulty with speech earlier. She called her neurologist and they asked her to come to the ED for evaluation to check labs during an incident. She has had CT and MRI which did not show anything. They do not believe this is migraines but there is more evaluation going on and they are considering MRI with contrast in the near future. Denies recent illness. This has happened more significantly during but she has her tubes tied now and is not . Last period was 2 weeks ago. Timing/Duration: 1-3 hours, waxing and waning Severity: moderate Associated Symptoms: No confusion, No muscle spasms, No nausea/vomiting, No paresthesia, No seizures; slurred speech; No weakness Allergies and Home Medications Allergies Coded Allergies: No Known Drug Allergies (Unverified , 06/01/11) Patient Home Medication List Home Medication List Reviewed: Yes Review of Systems Review of Systems Constitutional: see HPI; No chills, No fever, No weakness Eyes: No Symptoms Reported; Denies Blindness, Denies Blurred Vision Ears, Nose, Mouth, Throat: no symptoms reported Respiratory: no symptoms reported; No cough, No short of breath Cardiovascular: No chest pain, No palpitations Gastrointestinal: No abdominal pain, No nausea, No vomiting Genitourinary: no symptoms reported : No Psychiatric/Neurological: See HPI, Other (difficulty with speech and shakiness) All Other Systems Reviewed Negative Unless Noted: Yes Past Fwmotfm-Aqnsyo-Rkkpcd Hx Past Med/Social Hx: Reviewed Nursing Past Med/Soc Hx Patient Social History Alcohol Use: Denies Use Recreational Drug Use: No Smoking Status: Never a Smoker Recent Foreign Travel: No Contact w/Someone Who Travel: No Recent Infectious Disease Expo: No Recent Hopitalizations: No Physical Abuse: No Sexual Abuse: No Seasonal Allergies Seasonal Allergies: No Past Medical History Surgeries: Yes Tubal Ligation Respiratory: No Cardiac: No Neurological: No Genitourinary: No Gastrointestinal: No Musculoskeletal: No Endocrine: No HEENT: No Cancer: No Psychosocial: No Integumentary: No Blood Disorders: No Family Medical History Reviewed Nursing Family Hx Physical Exam Vital Signs Vital Signs - First Documented 10/12/18 15:56 Temp 98.5 Pulse 92 Resp 16 B/P (MAP) 129/87 (101) Pulse Ox 100 Capillary Refill : Less Than 3 Seconds Height, Weight, BMI Height: 5'7.00" Weight: 150lbs. oz. 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 Equal strength bilateral. Cranial nerves are intact. She does have slightly stuttered speech not slurred. She answers questions appropriately and knows all reference to time with regard to situation today.) Crainal Nerves: PERRL, abnormal speech (slightly stuttering); No facial asymmetry, No facial droop, No facial weakness Coordination/Gait: normal gait Motor/Sensory: no motor deficit, no sensory deficit Skin: normal color, warm/dry Progress/Results/Core Measures Results/Orders Lab Results Laboratory Tests Test 10/12/18 16:00 10/12/18 16:05 10/12/18 16:26 10/12/18 17:05 Range/Units Magnesium Level 2.3 1.8-2.4 MG/DL Thyroid Stimulating Hormone (TSH) 1.07 0.35-4.94 UIU/ML White Blood Count 6.6 4.3-11.0 10^3/uL Red Blood Count 4.41 4.35-5.85 10^6/uL Hemoglobin 14.0 11.5-16.0 G/DL Hematocrit 39 35-52 % Mean Corpuscular Volume 89 80-99 FL Mean Corpuscular Hemoglobin 32 25-34 PG Mean Corpuscular Hemoglobin Concent 36 32-36 G/DL Red Cell Distribution Width 11.8 10.0-14.5 % Platelet Count 262 130-400 10^3/uL Mean Platelet Volume 10.5 H 7.4-10.4 FL Neutrophils (%) (Auto) 57 42-75 % Lymphocytes (%) (Auto) 32 12-44 % Monocytes (%) (Auto) 8 0-12 % Eosinophils (%) (Auto) 2 0-10 % Basophils (%) (Auto) 1 0-10 % Neutrophils # (Auto) 3.8 1.8-7.8 X 10^3 Lymphocytes # (Auto) 2.1 1.0-4.0 X 10^3 Monocytes # (Auto) 0.5 0.0-1.0 X 10^3 Eosinophils # (Auto) 0.1 0.0-0.3 10^3/uL Basophils # (Auto) 0.1 0.0-0.1 10^3/uL Erythrocyte Sedimentation Rate 5 0-20 MM/HR D-Dimer 0.29 0.00-0.49 UG/ML Sodium Level 140 135-145 MMOL/L Potassium Level 3.4 L 3.6-5.0 MMOL/L Chloride Level 105 98-107 MMOL/L Carbon Dioxide Level 27 21-32 MMOL/L Anion Gap 8 5-14 MMOL/L Blood Urea Nitrogen 8 7-18 MG/DL Creatinine 0.81 0.60-1.30 MG/DL Estimat Glomerular Filtration Rate > 60 BUN/Creatinine Ratio 10 Glucose Level 106 H 70-105 MG/DL Calcium Level 9.8 8.5-10.1 MG/DL Corrected Calcium 8.5-10.1 MG/DL Total Bilirubin 0.8 0.1-1.0 MG/DL Aspartate Amino Transf (AST/SGOT) 25 5-34 U/L Alanine Aminotransferase (ALT/SGPT) 20 0-55 U/L Alkaline Phosphatase 97 40-136 U/L C-Reactive Protein High Sensitivity 0.05 0.00-0.50 MG/DL Total Protein 8.2 6.4-8.2 GM/DL Albumin 4.9 H 3.2-4.5 GM/DL Serum Test, Qualitative NEGATIVE NEGATIVE Glucometer 94 70-110 MG/DL Urine Color YELLOW Urine Clarity SLIGHTLY CLOUDY Urine pH 7 5-9 Urine Specific [place] 1.010 L 1.016-1.022 Urine Protein NEGATIVE NEGATIVE Urine Glucose (UA) NEGATIVE NEGATIVE Urine Ketones NEGATIVE NEGATIVE Urine Nitrite NEGATIVE NEGATIVE Urine Bilirubin NEGATIVE NEGATIVE Urine Urobilinogen NORMAL NORMAL MG/DL Urine Leukocyte Esterase 1+ H NEGATIVE Urine RBC (Auto) NEGATIVE NEGATIVE Urine RBC NONE /HPF Urine WBC 0-2 /HPF Urine Squamous Epithelial Cells 5-10 /HPF Urine Crystals NONE /LPF Urine Bacteria FEW H /HPF Urine Casts NONE /LPF Urine Mucus NEGATIVE /LPF Urine Culture Indicated NO My Orders Orders - LIZETTE COOMBS MD Magnesium (10/12/18 16:17) Thyroid Stimulating Hormone (10/12/18 16:17) Hs C Reactive Protein (10/12/18 16:46) Erythrocyte Sedimentation Rate (10/12/18 16:46) Ns Iv 1000 Ml (Sodium Chloride 0.9%) (10/12/18 16:46) Ketorolac Injection (Toradol Injection) (10/12/18 16:46) Medications Given in ED Current Medications Medications Dose Ordered Sig/Asad Route Start Time Stop Time Status Last Admin Dose Admin Sodium Chloride 1,000 ml @ 0 mls/hr Q0M ONCE IV 10/12/18 16:46 10/12/18 16:48 DC 10/12/18 16:54 1,000 MLS/HR Vital Signs/I&O 10/12/18 15:56 Temp 98.5 Pulse 92 Resp 16 B/P (MAP) 129/87 (101) Pulse Ox 100 Blood Pressure Mean: 101 FSBG Bedside Testing Finger Stick Blood Glucose: 94 Progress Progress Note : Progress Note Seen and evaluated. IV, labs, UA, normal saline 1 L bolus and Toradol 30 mg IV ordered. We will add sedimentation rate and CRP to look for inflammatory process. No indication for imaging currently. Consideration for MRI with contrast. We'll defer to neurologist given resolving symptoms. Monitor patient. 1800: Overall improved. No significant findings at this point. She will follow-up with her neurologist. Discharged home with return precautions. Patient verbalize understanding instructions and agreement with plan. Departure Impression Primary Impression: Speech abnormality Qualified Codes: R47.81 - Slurred speech Disposition: 01 HOME, SELF-CARE Condition: Improved Departure-Patient Inst. Decision time for Depature: 17:59 Referrals: HAILY CAMPO DO (PCP) Primary Care Physician DARYL ALONZO (Family) Primary Care Physician Patient Instructions: Transient Ischemic Attack (DC) Add. Discharge Instructions: All discharge instructions reviewed with patient and/or family. Voiced understanding. Follow-up with your neurologist as soon as possible. Call his office on Monday morning. Return for worse pain, fever, vomiting, weakness, rhythm problem, vision or balance problems, speech problems or other concerns as needed. Continue home medicines as previously prescribed. LIZETTE COOMBS MD Oct 12, 2018 17:03
[2018-10-12 17:06] LABS: MAGNESIUM 2.3 MG/DL (1.8-2.4)
[2018-10-12 17:17] LABS: BILIRUBIN,URINE NEGATIVE (NEGATIVE); CLARITY,URINE SLIGHTLY CLOUDY; COLOR,URINE YELLOW; GLUCOSE, URINE (UA) NEGATIVE (NEGATIVE); KETONES,URINE NEGATIVE (NEGATIVE); LEUKOCYTE ESTERASE ,URINE 1+ (NEGATIVE); NITRITE,URINE NEGATIVE (NEGATIVE); PH,URINE 7 (5-9); PROTEIN,URINE NEGATIVE (NEGATIVE); UROBILINOGEN,URINE NORMAL (NORMAL)
[2018-10-12 17:46] LABS: BACTERIA,URINE FEW /HPF; WBC,URINE 0-2 /HPF
[2018-10-12 18:05] VITALS: BP 129/87
== END 2018-10-12 18:05 | disposition home or self-care (01) ==
LOC: ER 15:50 → EDUNIT# 15:50 → ER 18:05
DX: R47.81 Slurred speech (principal); Z98.51 Tubal ligation status
CPT/HCPCS: 36415; 80053; 81000; 82962; 83735; 84443; 84703; 85025; 85379; 85652; 86141

== ENCOUNTER 2021-10-25 15:35 | Emergency (ER) | payer MEDICAID ==
[~2021-10-25] VITALS: Ht 170 cm; Wt 77.0 kg
--- NOTE | 2021-10-25 17:47 | ED Abdominal Pain ---
General Chief Complaint: Cough/Cold/Flu Symptoms Stated Complaint: FEVER/LETHARGIC/ABD PAIN/SOB/ V/D Nursing Triage Note: PT CO OF FEVER UP TO 103, BODY ACHES, FATIGUE, SHARP, ABD PAIN, HAS VOMITED ONCE AND HAD DIARRHEA. NO COUGH NOTED. PT HAS HX OF FIBROMYALGIA AND LUPUS. Source of Information: Patient Exam Limitations: No Limitations, Intoxication History of Present Illness Date Seen by Provider: Oct 25, 2021 Time Seen by Provider: 17:45 Initial Comments Patient is a 31-year-old female who presents ED with right lower quadrant pain, chills, fatigue, body aches and fever. She reports temperature as high as 103- 104 at home. Symptoms started this past weekend. She reports cramping sen sation right lower quadrant worse with cough and movement. Sharp stabbing lower abdominal pain became worse today without any urinary symptoms. She reports nausea without vomiting. She states she had diarrhea yesterday. History of tubal ligation. Denies cough, chest pain, headache, dizziness, sore throat. She has been taken Tylenol ibuprofen with minimal improvement. Allergies and Home Medications Allergies Coded Allergies: No Known Drug Allergies (Unverified , 06/01/11) Patient Home Medication List Home Medication List Reviewed: Yes Cephalexin (Cephalexin) 500 Mg Tablet, 500 MG PO BID Prescribed by: LEONELA NATION on 10/25/212007 Review of Systems Review of Systems Constitutional: chills, weakness EENTM: No Eye Pain, No Mouth Pain, No Nose Congestion Respiratory: Cough; Denies SOA With Exertion, Denies SOA at Rest Cardiovascular: Denies Chest Pain, Denies Edema Gastrointestinal: Abdominal Pain; Denies Diarrhea, Denies Difficulty Swallowing; Nausea Genitourinary: Denies Burning, Denies Drainage, Denies Frequency Musculoskeletal: No back pain, No joint pain, No joint swelling Skin: No change in color, No change in hair/nails All Other Systems Reviewed Negative Unless Noted: Yes Past [id number] Hx Patient Social History Tobacco Use?: No Substance use?: No Alcohol Use?: No Pt feels they are or have been: No Immunizations Up To Date First/Initial COVID19 Vaccinat: MARCH Second COVID19 Vaccination Oliver: APRIL COVID19 Vaccine Survey Supervisor: SATNAM Seasonal Allergies Seasonal Allergies: No Past Medical History Surgeries: Yes Tubal Ligation Respiratory: No Cardiac: No Neurological: No Genitourinary: No Gastrointestinal: No Musculoskeletal: No Endocrine: No HEENT: No Cancer: No Psychosocial: No Integumentary: No Blood Disorders: No Physical Exam Vital Signs Vital Signs - First Documented 10/25/21 17:20 Temp 36.7 Pulse 89 Resp 18 B/P (MAP) 124/85 (98) Pulse Ox 99 Capillary Refill : Less Than 3 Seconds Height/Weight/BMI Height: 5'7.00" Weight: 150lbs. oz. [id number]; 26.00 BMI Method:Stated General Appearance: WD/WN, no apparent distress HEENT: PERRL/EOMI, normal ENT inspection, TMs normal Neck: non-tender, full range of motion, supple Respiratory: chest non-tender, lungs clear, normal breath sounds Cardiovascular: regular rate, rhythm, no edema, no gallop Gastrointestinal: normal bowel sounds, soft, no organomegaly, tenderness (Right lower quadrant tenderness on palpation peer) Extremities: normal range of motion, non-tender, normal inspection Back: normal inspection, no CVA tenderness Progress/Results/Core Measures Results/Orders Lab Results Laboratory Tests Test 10/25/21 16:15 10/25/21 17:29 10/25/21 18:39 Range/Units Influenza Type A (RT-PCR) Not Detected Not Detecte Influenza Type B (RT-PCR) Not Detected Not Detecte SARS-CoV-2 RNA (RT-PCR) Not Detected Not Detecte Urine Color YELLOW Urine Clarity CLOUDY Urine pH 6.0 5-9 Urine Specific [place] 1.025 H 1.016-1.022 Urine Protein TRACE H NEGATIVE Urine Glucose (UA) NEGATIVE NEGATIVE Urine Ketones TRACE H NEGATIVE Urine Nitrite NEGATIVE NEGATIVE Urine Bilirubin NEGATIVE NEGATIVE Urine Urobilinogen 1.0 < = 1.0 MG/DL Urine Leukocyte Esterase NEGATIVE NEGATIVE Urine RBC (Auto) NEGATIVE NEGATIVE Urine RBC NONE /HPF Urine WBC 0-2 /HPF Urine Squamous Epithelial Cells 25-50 H /HPF Urine Renal Epithelial Cells NONE /HPF Urine Crystals NONE /LPF Urine Bacteria MODERATE H /HPF Urine Casts NONE /LPF Urine Mucus LARGE H /LPF Urine Culture Indicated NO White Blood Count 4.2 L 4.3-11.0 10^3/uL Red Blood Count 4.87 3.80-5.11 10^6/uL Hemoglobin 15.4 11.5-16.0 g/dL Hematocrit 44 35-52 % Mean Corpuscular Volume 90 80-99 fL Mean Corpuscular Hemoglobin 32 25-34 pg Mean Corpuscular Hemoglobin Concent 35 32-36 g/dL Red Cell Distribution Width 11.5 10.0-14.5 % Platelet Count 155 130-400 10^3/uL Mean Platelet Volume 10.1 9.0-12.2 fL Immature Granulocyte % (Auto) 1 % Neutrophils (%) (Auto) 70 42-75 % Lymphocytes (%) (Auto) 20 12-44 % Monocytes (%) (Auto) 8 0-12 % Eosinophils (%) (Auto) 1 0-10 % Basophils (%) (Auto) 1 0-10 % Neutrophils # (Auto) 2.9 1.8-7.8 10^3/uL Lymphocytes # (Auto) 0.8 L 1.0-4.0 10^3/uL Monocytes # (Auto) 0.3 0.0-1.0 10^3/uL Eosinophils # (Auto) 0.0 0.0-0.3 10^3/uL Basophils # (Auto) 0.0 0.0-0.1 10^3/uL Immature Granulocyte # (Auto) 0.0 0.0-0.1 10^3/uL Sodium Level 138 135-145 MMOL/L Potassium Level 3.8 3.6-5.0 MMOL/L Chloride Level 105 98-107 MMOL/L Carbon Dioxide Level 24 21-32 MMOL/L Anion Gap 9 5-14 MMOL/L Blood Urea Nitrogen 5 L 7-18 MG/DL Creatinine 0.77 0.60-1.30 MG/DL Estimat Glomerular Filtration Rate 87 BUN/Creatinine Ratio 6 Glucose Level 99 70-105 MG/DL Calcium Level 9.5 8.5-10.1 MG/DL Corrected Calcium 9.3 8.5-10.1 MG/DL Total Bilirubin 0.8 0.1-1.0 MG/DL Aspartate Amino Transf (AST/SGOT) 52 H 5-34 U/L Alanine Aminotransferase (ALT/SGPT) 53 0-55 U/L Alkaline Phosphatase 90 40-136 U/L Total Protein 7.5 6.4-8.2 GM/DL Albumin 4.2 3.2-4.5 GM/DL Lipase 15 8-78 U/L Serum Test, Qualitative NEGATIVE NEGATIVE My Orders Orders - EDWARD FLORES Cbc With Automated Diff (10/25/21 17:44) Comprehensive Metabolic Panel (10/25/21 17:44) Lipase (10/25/21 17:44) Ua Culture If Indicated (10/25/21 17:44) Hcg,Qualitative Serum (10/25/21 17:44) Ct Abdomen/Pelvis W (10/25/21 17:44) Iohexol Injection (Omnipaque 350 Mg/Ml 1 (10/25/21 18:15) Received Contrast (Hold Metformin- Contr (10/25/21 18:15) Ns (Ivpb) (Sodium Chloride 0.9% Ivpb Bag (10/25/21 18:15) Medications Given in ED Vital Signs/I&O 10/25/21 10/25/21 17:20 20:39 Temp 36.7 36.7 Pulse 89 89 Resp 18 18 B/P (MAP) 124/85 (98) 124/85 Pulse Ox 99 99 Blood Pressure Mean: 98 Departure Communication (Admissions) Patient with flulike symptoms and right lower quadrant abdominal pain. Denies of any specific urinary symptoms. Negative for . White blood count 4.2. Negative for influenza and Covid here in the ED. Ongoing pain here in the right lower quadrant. Refused pain medication. CT abdomen pelvis negative for acute abnormality. Negative for acute pain ascites. Urinalysis with concerning UTI potential contamination. Denies any vaginal bleeding, vaginal discharge. Pain does not appear in acute distress. No peritoneal signs. Patient's presentation and limited pain does not present like ovarian torsion. Did offer ultrasound she would rather wait at this time. She refused any type of pain medication. Will discharge with Keflex for potential underlying UTI. If ongoing worsening pain patient will need further evaluation with ultrasound. Impression Primary Impression: UTI (urinary tract infection) Additional Impression: Abdominal pain Disposition: 01 HOME, SELF-CARE Condition: Stable Departure-Patient Inst. Decision time for Depature: 20:06 Referrals: [facility] (PCP) Primary Care Physician DARYL ALONZO (Family) Primary Care Physician Patient Instructions: Abdominal Pain, Adult ED Scripts Cephalexin (Cephalexin) 500 Mg Tablet 500 MG PO BID for 7 Days, #14 TAB Prov: EDWARD FLORES 10/25/21 EDWARD FLORES Oct 25, 2021 17:47
[2021-10-25 17:53] LABS: BILIRUBIN,URINE NEGATIVE (NEGATIVE); CLARITY,URINE CLOUDY; COLOR,URINE YELLOW; GLUCOSE, URINE (UA) NEGATIVE (NEGATIVE); KETONES,URINE TRACE (NEGATIVE); LEUKOCYTE ESTERASE ,URINE NEGATIVE (NEGATIVE); NITRITE,URINE NEGATIVE (NEGATIVE); PROTEIN,URINE TRACE (NEGATIVE)
[2021-10-25 18:10] LABS: BACTERIA,URINE MODERATE /HPF; SQUAMOUS EPITHELIAL CELL,UR 25-50 /HPF; WBC,URINE 0-2 /HPF
[2021-10-25] MEDS ORDERED: HOLD METFORMIN - RECEIVED CONTRAST 20 ML VIAL IV SCH (18:15)
[2021-10-25] MEDS ORDERED: NS 100 ML (IVPB) BAG IV ONE (18:15)
[2021-10-25] MEDS ORDERED: IOHEXOL 350 MG/ML 100 ML (OMNIPAQUE 350) VIAL IV ONE (18:15)
[2021-10-25 18:47] LABS: BASOPHILS % (AUTO) 1 % (0-10); EOSINOPHILS % (AUTO) 1 % (0-10); HEMATOCRIT 44 % (35-52); HEMOGLOBIN 15.4 g/dL (11.5-16.0); LYMPHOCYTES # (AUTO) 0.8 10^3/uL (1.0-4.0); LYMPHOCYTES % (AUTO) 20 % (12-44); MEAN CORPUSCULAR HEMOGLOBIN 32 pg (25-34); MEAN CORPUSCULAR HGB CONC 35 g/dL (32-36); MEAN CORPUSCULAR VOLUME 90 fL (80-99); MEAN PLATELET VOLUME 10.1 fL (9.0-12.2); MONOCYTES # (AUTO) 0.3 10^3/uL (0.0-1.0); MONOCYTES % (AUTO) 8 % (0-12); NEUTROPHILS # (AUTO) 2.9 10^3/uL (1.8-7.8); NEUTROPHILS % (AUTO) 70 % (42-75); PLATELET COUNT 155 10^3/uL (130-400); WHITE BLOOD COUNT 4.2 10^3/uL (4.3-11.0)
[2021-10-25 19:06] LABS: ALBUMIN 4.2 GM/DL (3.2-4.5); BILIRUBIN,TOTAL 0.8 MG/DL (0.1-1.0); CALCIUM 9.5 MG/DL (8.5-10.1); CREATININE SERUM 0.77 MG/DL (0.60-1.30); POTASSIUM 3.8 MMOL/L (3.6-5.0); TOTAL PROTEIN 7.5 GM/DL (6.4-8.2)
--- NOTE | 2021-10-25 19:45 | Diagnostic Imaging Report ---
PROCEDURE: CT abdomen and pelvis with contrast. TECHNIQUE: Multiple contiguous axial images were obtained through the abdomen and pelvis after administration of intravenous contrast. Auto Exposure Controls were utilized during the CT exam to meet ALARA standards for radiation dose reduction. All CT scans use one or more of the following dose optimizing techniques: automated exposure control, MA and/or KvP adjustment based on patient size and exam type or iterative reconstruction. INDICATION: Right-sided abdominal pain x3 days with fever Lung bases are clear. Liver appears normal. Gallbladder appears normal. Pancreas appears normal. Spleen appears normal. Adrenals appear normal. Kidneys appear normal. Small bowel is unremarkable. There is no evidence of appendicitis. Colon appears normal. Uterus and ovaries appear normal. Urinary bladder is normal. There is a trace amount of free fluid in the cul-de-sac. There is no intraperitoneal free air. IMPRESSION: Trace amount of free fluid in the cul-de-sac. Abdomen and pelvis otherwise unremarkable. Dictated by: Dictated on workstation # [id number]
[2021-10-25] MEDS ORDERED: CEPH500T PO (20:08)
[2021-10-25 20:39] VITALS: BP 124/85
== END 2021-10-25 20:39 | disposition home or self-care (01) ==
LOC: EDUNIT# 15:35 → ER 15:37
DX: N39.0 Urinary tract infection, site not specified (principal); Z20.822 Contact with and (suspected) exposure to COVID-19; Z32.02 Encounter for pregnancy test, result negative
CPT/HCPCS: 36415; 74177; 80053; 81000; 83690; 84703; 85025; 87636